=== PATIENT | female | born 1975 | race African-American/Black ===

== ENCOUNTER 2023-03-24 03:20 | Observation (INO) | payer OTHER ==
[2023-03-24 04:02] VITALS: BMI 39.6
[2023-03-24] MEDS ORDERED: Ondansetron ODT 4 MG TAB PO PRN (04:17)
[2023-03-24] MEDS ORDERED: EPINEPHrine 1 MG/ML AMP IM PRN (04:21)
[2023-03-24] MEDS ORDERED: hydrALAZINE 20 MG/ML VIAL SLOW IVP SCH ×4 (04:30→10:30)
[2023-03-24] MEDS ORDERED: diphenhydrAMINE 25 MG CAP PO SCH (04:30)
[2023-03-24] MEDS: Lactated Ringer's 1,000 ML IV SCH ×2 (05:21→17:36)
[2023-03-24 06:10] LABS: Hemoglobin 6.9 g/dL (12.0-15.5)
[2023-03-24] MEDS ORDERED: hydrALAZINE 20 MG/ML VIAL SLOW IVP PRN (08:22)
[2023-03-24] MEDS ORDERED: Amlodipine 10 MG TAB PO SCH (09:00)
[2023-03-24] MEDS: Amlodipine 10 MG TAB PO SCH (09:17)
[2023-03-24] MEDS ORDERED: Ferrous Sulfate 325 MG TAB PO SCH (09:30)
[2023-03-24] MEDS: Ferrous Sulfate 325 MG TAB PO SCH ×2 (15:54→21:08)
[2023-03-24] MEDS: Acetaminophen 325 MG TAB PO PRN (15:54)
[2023-03-24] MEDS ORDERED: hydrALAZINE 25 MG TAB PO SCH (17:00)
[2023-03-25] MEDS: Acetaminophen 325 MG TAB PO PRN ×2 (03:12→07:14)
[2023-03-25 04:04] LABS: Anion Gap 11 mmol/L (10-20); BUN (Urea Nitrogen) 10 mg/dL (7.0-18.7); Calc. Creatinine Clearance 141 mL/min (70-130); Calcium 8.9 mg/dL (7.8-10.44); Carbon Dioxide 23 mmol/L (22-29); Chloride 110 mmol/L (98-107); Estimated GFR 100; Glucose 97 mg/dL (70-105); Potassium 3.6 mmol/L (3.5-5.1); Sodium 140 mmol/L (136-145)
[2023-03-25] MEDS ORDERED: Lisinopril 10 MG TAB PO SCH ×3 (04:30→09:00)
[2023-03-25 07:33] VITALS: TEMP 98
[2023-03-25] MEDS: Amlodipine 10 MG TAB PO SCH (07:58)
[2023-03-25] MEDS: Ferrous Sulfate 325 MG TAB PO SCH (07:58)
[2023-03-25] MEDS ORDERED: Labetalol HCl 100 MG/20 ML VIAL SLOW IVP PRN (08:22)
[2023-03-25 08:49] LABS: #Eosinphils 0.1 10x3/uL (0.0-0.5); #Monocytes 0.4 10x3/uL (0.0-1.1); #Neutrophils 6.9 10x3/uL (1.5-8.4); %Basophils 0.3 % (0.0-2.0); %Eosinophils 1.4 % (0.0-6.0); %Lymphocytes 13.7 % (18.0-47.0); %Monocytes 4.6 % (0.0-10.0); %Neutrophils 78.6 % (40.0-75.0); Hemoglobin 7.9 g/dL (12.0-15.5); Mean Corpuscular HGB CONC 29.5 g/dL (32.0-36.0); Mean Corpuscular Hemoglobin 21.4 pg (27.0-33.0); Mean Corpuscular Volume 72.6 fl (81.6-98.3); Mean Platelet Volume 10.9 fl (7.4-10.4); Platelet Count 368 10x3/uL (150-450); RBC Distribution Width 25.1 % (11.5-14.5); Red Blood Cell (RBC) Count 3.69 10x6/uL (3.90-5.03); White Blood Cell (WBC) Count 8.8 10x3/uL (3.5-10.5)
[2023-03-25] MEDS: Lactated Ringer's 1,000 ML IV SCH (08:56)
[2023-03-25] MEDS ORDERED: Hydrochlorothiazide 25 MG TAB PO SCH (09:00)
[2023-03-25] MEDS ORDERED: hydrALAZINE 25 MG TAB PO SCH (09:00)
[2023-03-25 09:45] VITALS: BP 162/78
[2023-03-25 09:46] LABS: Anisocytosis MODERATE=16-30 cells (100X) (0-5/hpf); Hypochromia SLIGHT = 6-15 cells (100X) (0-5/hpf); Microcytosis SLIGHT = 6-15 cells (100X) (0-5/hpf); Ovalocytes SLIGHT = 2-5 cells (100X) (0-1/hpf); Polychromasia SLIGHT = 2-3 cells (100X) (0-2/hpf)
[2023-03-25 09:47] LABS: Elliptocytes SLIGHT = 2-5 cells (100X) (0-1/hpf); Large Platelets SLIGHT (None Seen); Platelet Adequacy Comment Appears Adequate
[2023-03-26] MEDS ORDERED: Amlodipine 10 MG TAB PO SCH (09:00)
[2023-03-26] MEDS ORDERED: NIFEdipine XL 60 MG TAB PO SCH (09:00)
== END 2023-03-25 09:53 | disposition home or self-care (01) ==
LOC: CSHPED 03:20 → INTOOBSV 03:20
PROVIDERS: ADMIT Obstetrics & Gynecology; ATTEND Internal Medicine
DX: D25.9 Leiomyoma of uterus, unspecified (principal); D64.9 Anemia, unspecified; J45.909 Unspecified asthma, uncomplicated; N93.9 Abnormal uterine and vaginal bleeding, unspecified; I10 Essential (primary) hypertension; Z88.5 Allergy status to narcotic agent; Z98.51 Tubal ligation status; Z79.899 Other long term (current) drug therapy
CPT/HCPCS: 36415; 76856; 80048; 85014; 85018; 85025; 86850; 86900; 86901; 96374; 96376; G0378; J0360; J7120; P9016; Q0162

== ENCOUNTER 2023-08-11 16:25 | Emergency (ER) | payer OTHER ==
[2023-08-11 17:18] LABS: #Eosinphils 0.3 10x3/uL (0.0-0.5); #Monocytes 0.3 10x3/uL (0.0-1.1); %Basophils 0.4 % (0.0-2.0); %Eosinophils 3.4 % (0.0-6.0); %Lymphocytes 16.8 % (18.0-47.0); Hematocrit 30.5 % (34.9-44.5); Hemoglobin 9.9 g/dL (12.0-15.5); Mean Corpuscular HGB CONC 32.5 g/dL (32.0-36.0); Mean Corpuscular Volume 89.4 fl (81.6-98.3); Mean Platelet Volume 12.5 fl (7.4-10.4); Platelet Count 201 10x3/uL (150-450); RBC Distribution Width 18.5 % (11.5-14.5); Red Blood Cell (RBC) Count 3.41 10x6/uL (3.90-5.03); White Blood Cell (WBC) Count 7.9 10x3/uL (3.5-10.5)
[2023-08-11 17:25] LABS: BHCG - Serum Negative (NEGATIVE); Pregs Control Background? CLEAR/WHITE (CLR/WHITE); Pregs Control Bar Appear? YES (CONTROL BAR)
[2023-08-11 17:32] LABS: ALT (SGPT) 7 U/L (8-55); AST (SGOT) 12 U/L (5-34); Albumin 3.9 g/dL (3.5-5.0); Alkaline Phosphatase 51 U/L (40-110); Anion Gap 12 mmol/L (10-20); BUN (Urea Nitrogen) 15 mg/dL (7.0-18.7); Bilirubin, Total 0.3 mg/dL (0.2-1.2); Calc. Creatinine Clearance 0 mL/min (70-130); Calcium 8.4 mg/dL (7.8-10.44); Carbon Dioxide 18 mmol/L (22-29); Chloride 114 mmol/L (98-107); Estimated GFR 79; Globulin 2.5 g/dL (2.4-3.5); Glucose 135 mg/dL (70-105); Lipase 24 U/L (8-78); Protein, Total 6.4 g/dL (6.0-8.3); Sodium 141 mmol/L (136-145)
[2023-08-11 17:49] LABS: PTT 25.8 sec (22.0-33.0); Prothrombin Time 10.8 sec (9.5-12.1)
[2023-08-11 17:53] LABS: Troponin I Less than 0.010 ng/mL (< 0.028)
[2023-08-11] MEDS ORDERED: Ketorolac Tromethamine 30 MG/ML VIAL ONE (17:57)
[2023-08-11] MEDS ORDERED: Amlodipine 5 MG TAB ONE (17:57)
[2023-08-11] MEDS ORDERED: Potassium Chloride 20 MEQ TAB ONE (17:58)
[2023-08-11 19:49] LABS: Bilirubin Neg (Negative); Blood, Urine 250 (Negative); Clarity Slightly Cloudy (Clear); Glucose, Urine (Dipstick) Normal (Negative); Ketone, Urine Negative (Negative); Leukocyte 25 (Negative); Nitrite Negative (Negative); Protein, Urine (Dipstick) 30 mg/dl (Neg-Trace); Specific Gravity, Urine 1.015 (1.005-1.030); Urobilinogen Normal mg/dL (Less than 2)
[2023-08-11 19:57] LABS: Bacteria/HPF Rare-Few HPF (None Seen); CAUTI Indications for Culture Acute Hematuria; RBC/HPF Greater than 50 HPF (0-3); Squamous Epithelial None Seen HPF (0-3); Urine Culture Reflex No No; WBC/HPF 0-3 HPF (0-3)
== END 2023-08-11 20:13 | disposition home or self-care (01) ==
LOC: CSHERS 16:25
DX: N92.0 Excessive and frequent menstruation with regular cycle (principal); E87.6 Hypokalemia; I10 Essential (primary) hypertension; Z79.899 Other long term (current) drug therapy
CPT/HCPCS: 76856; 80053; 81001; 83690; 84484; 84703; 85025; 85610; 85730; 86850; 86900; 86901; 93005; 96374; J1885

== ENCOUNTER 2023-09-06 09:10 | Outpatient (CLI) | payer OTHER | END 2023-09-06 09:11 | disposition home or self-care (01) | LOC: CSHLAB 09:10 | PROVIDERS: ATTEND Obstetrics & Gynecology | DX: Z01.818 Encounter for other preprocedural examination (principal); D25.0 Submucous leiomyoma of uterus | CPT/HCPCS: 84703; 85027; 86850; 86900; 86901; 93005; 93010 ==

== ENCOUNTER 2023-09-08 07:40 | Day surgery (SDC) | payer OTHER ==
[2023-09-06 09:46] VITALS: BMI 38.3
[2023-09-06 10:46] LABS: Hematocrit 36.3 % (34.9-44.5); Hemoglobin 11.4 g/dL (12.0-15.5); Mean Corpuscular HGB CONC 31.4 g/dL (32.0-36.0); Mean Platelet Volume 12.7 fl (7.4-10.4); Platelet Count 230 10x3/uL (150-450); RBC Distribution Width 15.4 % (11.5-14.5); Red Blood Cell (RBC) Count 4.22 10x6/uL (3.90-5.03)
[2023-09-06 11:19] LABS: BHCG - Serum Negative (NEGATIVE); Pregs Control Background? CLEAR/WHITE (CLR/WHITE); Pregs Control Bar Appear? YES (CONTROL BAR)
[2023-09-08] MEDS ORDERED: Gabapentin 300 MG CAP ONE (07:51)
[2023-09-08] MEDS ORDERED: Famotidine/PF 20 mg/2ml Vial ONE (07:52)
[2023-09-08] MEDS ORDERED: CeleCOXIB 100 MG CAP ONE (07:53)
[2023-09-08] MEDS ORDERED: Lidocaine 1% PF 5 ML VIAL ONE (09:05)
[2023-09-08] MEDS ORDERED: Ondansetron PF 4 MG/2 ML Vial ONE (09:05)
[2023-09-08] MEDS ORDERED: Dexamethasone 20 MG/5 ML VIAL ONE (09:05)
[2023-09-08] MEDS ORDERED: PROPOFOL 20 ML ONE (09:05)
[2023-09-08] MEDS ORDERED: Rocuronium Bromide 10 MG/ML (10ML VIAL) ONE (09:05)
[2023-09-08] MEDS ORDERED: Fentanyl 250 MCG/5 ML VIAL ONE (09:06)
[2023-09-08] MEDS ORDERED: Midazolam HCl 2 mg/2 ml Vial ONE (09:06)
[2023-09-08] MEDS ORDERED: EPINEPHrine 1 MG/ML VIAL ONE (09:06)
[2023-09-08] MEDS ORDERED: Glycopyrrolate 0.2 MG/ML 5 ML SYRINGE ONE (09:06)
[2023-09-08] MEDS ORDERED: Bupivacaine PF 0.5% 30 ML VIAL ONE (09:06)
[2023-09-08] MEDS ORDERED: CEFAZOLIN 2 GM VIAL ONE (09:48)
[2023-09-08] MEDS ORDERED: metroNIDAZOLE 500 MG/100 ML BAG ONE (09:48)
[2023-09-08] MEDS ORDERED: Labetalol HCl 100 MG/20 ML VIAL ONE (10:31)
[2023-09-08] MEDS ORDERED: fentaNYL 50 mcg/mL 1 mL Vial ONE (11:29)
[2023-09-08] MEDS ORDERED: HYDROcodone/Acetaminophen 5/325 mg Tablet ONE (12:58)
== END 2023-09-08 14:20 | disposition home or self-care (01) ==
LOC: CSHSDC 07:40
PROVIDERS: ATTEND Obstetrics & Gynecology
PROC: 0UT24ZZ Resection of Bilateral Ovaries, Percutaneous Endoscopic Approach (ICD-10-PCS; principal; 2023-09-08)
PROC: 0UT94ZZ Resection of Uterus, Percutaneous Endoscopic Approach (ICD-10-PCS; principal; 2023-09-08)
PROC: 0UT74ZZ Resection of Bilateral Fallopian Tubes, Percutaneous Endoscopic Approach (ICD-10-PCS; principal; 2023-09-08)
DX: D25.0 Submucous leiomyoma of uterus (principal); N80.03 Adenomyosis of the uterus; D64.9 Anemia, unspecified; N80.00 Endometriosis of the uterus, unspecified; J45.909 Unspecified asthma, uncomplicated; I10 Essential (primary) hypertension; E66.9 Obesity, unspecified; Z68.35 Body mass index [BMI] 35.0-35.9, adult; Z79.899 Other long term (current) drug therapy
CPT/HCPCS: 84703; 85027; 86850; 86900; 86901; 88307; C9250; J0171; J1100; J2250; J2405; J2704; J3010; S0020; S0028

== ENCOUNTER 2024-10-18 09:03 | Emergency (ER) | payer OTHER ==
[2024-10-18] MEDS ORDERED: Prochlorperazine 10 MG/2 ML VIAL ONE (09:29)
[2024-10-18] MEDS ORDERED: diphenhydrAMINE 50 MG/ML VIAL ONE (09:29)
[2024-10-18] MEDS ORDERED: Ketorolac Tromethamine 30 MG (1 mL) VIAL ONE (09:29)
[2024-10-18] MEDS ORDERED: Dexamethasone 10 MG/ML VIAL ONE (09:29)
[2024-10-18 09:59] LABS: #Eosinophils 0.04 10x3/uL (0.0-0.5); #Monocytes 0.34 10x3/uL (0.0-1.1); %Basophils 0.1 % (0.0-2.0); %Eosinophils 0.4 % (0.0-6.0); %Lymphocytes 11.5 % (18.0-47.0); %Monocytes 3.5 % (0.0-10.0); %Neutrophils 84.2 % (40.0-75.0); Hematocrit 43.9 % (34.9-44.5); Hemoglobin 14.3 g/dL (12.0-15.5); Mean Corpuscular HGB CONC 32.6 g/dL (32.0-36.0); Mean Corpuscular Hemoglobin 28.7 pg (27.0-33.0); Mean Platelet Volume 11.5 fL (7.4-10.4); Platelet Count 243 10x3/uL (150-450); RBC Distribution Width 13.5 % (11.5-14.5); Red Blood Cell (RBC) Count 4.99 10x6/uL (3.90-5.03); White Blood Cell (WBC) Count 9.6 10x3/uL (3.5-10.5)
[2024-10-18 10:11] LABS: #Basophils 0.01 10x3/uL (0.0-0.2)
[2024-10-18 10:22] LABS: ALT (SGPT) 14 U/L (8-55); AST (SGOT) 14 U/L (5-34); Albumin 4.5 g/dL (3.5-5.0); Alkaline Phosphatase 92 U/L (40-110); Anion Gap 13 mmol/L (10-20); BUN (Urea Nitrogen) 17 mg/dL (7.0-18.7); Bilirubin, Total 0.7 mg/dL (0.2-1.2); Calc. Creatinine Clearance 0 mL/min (70-130); Calcium 9.9 mg/dL (7.8-10.44); Carbon Dioxide 25 mmol/L (22-29); Chloride 103 mmol/L (98-107); Estimated GFR 69; Globulin 3.8 g/dL (2.4-3.5); Glucose 102 mg/dL (70-105); Magnesium 2.2 mg/dL (1.6-2.6); Potassium 3.2 mmol/L (3.5-5.1); Protein, Total 8.3 g/dL (6.0-8.3); Sodium 138 mmol/L (136-145)
[2024-10-18] MEDS ORDERED: Potassium Chloride 20 MEQ TAB ONE (10:25)
== END 2024-10-18 11:01 | disposition home or self-care (01) ==
LOC: CSHERS 09:03
DX: R51.9 Headache, unspecified (principal); E87.6 Hypokalemia; R29.700 NIHSS score 0; I10 Essential (primary) hypertension
CPT/HCPCS: 71045; 80053; 83735; 84443; 85025; 87428; 93005; 96374; 96375; J0780; J1100; J1200; J1885